=== PATIENT | female | born 1955 | race Caucasian/White ===

== ENCOUNTER 2017-03-08 15:00 | Inpatient (IN) | payer BC ==
[2017-03-21] MEDS ORDERED: METOCLOPRAMIDE 10 MG TABLET PO ONE (06:00)
[2017-03-21] MEDS ORDERED: FAMOTIDINE 20MG TABLET PO ONE (06:00)
[2017-03-21] MEDS ORDERED: CELECOXIB 100 MG CAPSULE PO ONE (06:00)
[2017-03-21] MEDS ORDERED: CEFAZOLIN 2 Gram 2 GM/50 ML BAG IVPB ONE (06:00)
[2017-03-21] MEDS ORDERED: ACETAMINOPHEN 1,000 MG/100 ML BTL IV ONE (06:00)
[2017-03-21] MEDS ORDERED: MECLIZINE 25 MG TABLET PO ONE (06:00)
[2017-03-21] MEDS ORDERED: DIPHENHYDRAMINE HCL 25 MG CAPSULE PO PRN (09:45)
[2017-03-21] MEDS ORDERED: AL HYDROX/MAG HYDROX 30ML UD PO PRN (09:45)
[2017-03-21] MEDS ORDERED: MAGNESIUM HYDROXIDE 30 ML UDC PO PRN (09:45)
[2017-03-21] MEDS ORDERED: SENNOSIDES/DOCUSATE SODIUM UD CAPSULE PO PRN (09:45)
[2017-03-21] MEDS ORDERED: HYDROMORPHONE HCL 1 MG/ML CPJ IVP PRN (09:45)
[2017-03-21] MEDS ORDERED: ONDANSETRON HCL IV 4 MG/2 ML VIAL IVP PRN (09:45)
[2017-03-21] MEDS ORDERED: TRAMADOL HCL 50 MG TABLET PO PRN ×2 (09:45)
[2017-03-21] MEDS ORDERED: ZOLPIDEM TARTRATE 5 MG TABLET PO PRN (09:45)
[2017-03-21] MEDS ORDERED: METOCLOPRAMIDE HCL 10 MG/2 ML VIAL IVP PRN (09:45)
[2017-03-21] MEDS ORDERED: OXYCODONE HCL 5 MG TABLET PO PRN (09:45)
[2017-03-21] MEDS: RINGERS SOLUTION,LACTATED 1,000 ML IV SCH (11:44)
[2017-03-21] MEDS: ACETAMINOPHEN 1,000 MG/100 ML BTL IV SCH ×2 (11:55→18:03)
[2017-03-21] MEDS: OXYCODONE HCL 5 MG TABLET PO PRN ×3 (11:55→21:44)
[2017-03-21] MEDS ORDERED: FLU VAC QS 2017-18 (INPT, 6MO+) 60MCG/0.5ML IM ONE (12:04)
--- NOTE | 2017-03-21 13:10 | Operative Note ---
DATE OF SERVICE: 03/21/2017. DATE OF SURGERY: 03/21/2017. PREOPERATIVE DIAGNOSIS: Primary osteoarthritis of the left hip. POSTOPERATIVE DIAGNOSIS: Primary osteoarthritis of the left hip. OPERATION: Left total hip arthroplasty. Surgeon: Mehul Awad DO. REFERRING PHYSICIAN: Jessica Francisco DO. PROCEDURE: This 61-year-old female taken to the operating room and placed in the supine position on the operating room table, where general anesthesia was induced. She was then placed perpendicular to the floor in the right lateral decubitus position and bolstered in this position and secured. The left hip was then prepped with Hibiclens and draped in the usual sterile fashion. All scrub personnel wore personal isolation suits. A lateral hip incision was made, dissecting down through the skin and subcutaneous tissue. The tensor was divided in line with the skin incision. A self-retaining hip retractor was placed and sharp rotators were divided to expose the hip. Capsulotomy was performed. Steinmann pin retractors were used, 1 superiorly in the gluteus medius, 1 posterior superior, and 1 posterior inferior. We then made a sue on the greater trochanter with the cautery and measured this distance to the proximal pin, and this distance was restored at the completion of the procedure. The hip was dislocated and the neck amputated. A cobra retractor was placed anteriorly. The remnants of the labrum were excised, and excellent exposure of the acetabulum was noted. The soft tissue was removed. We then started reaming with a size 46 mm reamer, reaming in 1 mm increments to a size 50 to the base of the cotyloid notch. A trial cup was placed, and this was found to be the appropriate size. Subsequently, a size 50 Trident cup was impacted into place at approximately 40 degrees of abduction and approximately 20 degrees of anteversion. Subsequently, a trial liner was placed. We then directed our attention to the proximal femur, and a box osteotome was used to cut the proximal femur, and subsequently a lathe hand was passed down the center of the shaft. Then using an alternating ream/broach technique, a size 6 broach was countersunk, and the calcar reamer was used. The size 7 broach was placed, and finally the 8, and this gave us excellent stability, and the trial reduction was accomplished off of the 8 broach. A 0 degree head was used, and the hip was taken through a range of motion with wide abduction and external rotation, flexion to 100 degrees, and internal rotation to about 70 degrees with no instability being identified. The hip was then dislocated, and all the trial components were removed. A 36 mm X3 liner was subsequently impacted into place, and a size 8 collared Secur-Fit femoral component, which was seen to contact the anterior and posterior calcar before it actually contacted the medial by a mm or less. The 36 mm Biolox head +[address], and the hip was again reduced, the wound copiously irrigated with pulse lavage lactated Ringer solution, and the short rotators were reattached utilizing #5 Ethibond through drill holes through the greater trochanter. This was restored to anatomic position, and a drain was placed through a separate stab incision. Again the wound was irrigated with pulse lavage lactated Ringer solution. Subsequently, the tensor was closed with #2 Vicryl, the subcutaneous tissue closed with 0 Vicryl, the skin was stapled, and the patient taken to the recovery room in satisfactory condition. GROSS PATHOLOGY: Patient demonstrated full thickness articular cartilage loss noted at the acetabulum and femoral head. There was a relatively small osteophyte at the inferior aspect of the acetabulum, which was removed. Final components inserted were a Pam size 8 collared femoral component, a size 50 Trident cup was used, a 36 mm X3 liner, and a 36 mm Biolox +0 head was used. [facility] NETWORKCandis
[2017-03-21] MEDS ORDERED: HYDROMORPHONE HCL 2 MG/ML VIAL IV ONE ×2 (13:51→15:44)
[2017-03-21] MEDS ORDERED: PROPOFOL 10 MG/ML VIAL IV ONE (15:44)
[2017-03-21] MEDS ORDERED: LABETALOL HCL 5MG/ML, 20ML VIAL IVPB ONE (15:44)
[2017-03-21] MEDS ORDERED: KETOROLAC 30 MG/ML VIAL IVP ONE (15:44)
[2017-03-21] MEDS ORDERED: MIDAZOLAM HCL 2MG/2ML VIAL IV ONE (15:44)
[2017-03-21] MEDS ORDERED: SEVOFLURANE 250 ML INH ONE (15:44)
[2017-03-21] MEDS ORDERED: FENTANYL PF 0.25MG/5ML AMPUL IV ONE (15:44)
[2017-03-21] MEDS ORDERED: LIDOCAINE 2% MDV (20MG/ML) 20ML VIAL IV ONE (15:44)
[2017-03-21] MEDS ORDERED: ROCURONIUM BROMIDE 50MG/5ML VIAL IV ONE (15:44)
[2017-03-21] MEDS ORDERED: ONDANSETRON HCL IV 4 MG/2 ML VIAL IVP ONE (15:44)
[2017-03-21] MEDS: CEFAZOLIN 2 Gram 2 GM/50 ML BAG IVPB SCH (16:01)
[2017-03-21] MEDS: FONDAPARINUX 2.5 MG/0.5 ML SYR SQ SCH (16:01)
--- NOTE | 2017-03-21 17:27 | Rehab Evaluation ---
Patient Information - Patient Information Diagnosis: OA L hip, s/p TONIA Ordered Treatment: PT Evaluate and Treat Status: Initial Evaluation Surgery: Yes (L TONIA) Date of Surgery: 03/21/17 History: Detail (Pt had R TONIA done in 2012, experienced progressive degeneration of L hip which was limiting her mobility. Underwent L TONIA this morning.) Past Med/Lizabeth Hx Detail: Detail Past Medical/Surgical Hx: PAST MEDICAL/SURGICAL HISTORY Past Surgical History c scope vaginal sx, right great toe sx x 2, right THR PMH - Respiratory Hx Respiratory Disorders No PMH - Cardiovascular Hx Cardiovascular Disorders No Exercise Tolerance Good PMH - Neuro Hx Neurological Disorders No PMH - GI Hx Gastrointestinal Disorders Yes Hx Rectal Bleeding No: pt denies Hx Ulcer Yes Comment: h pylori hx PMH - Hx Genitourinary Disorders Yes Hx Age of Menopause 50 Hx Bladder Problem Yes: pelvic and perineal pain Comment: STILL FREQUENCY AND URGENCY CONTINUES PMH - Endocrine Hx Endocrine Disorders No PMH - Musculoskeletal Hx Musculoskeletal Disorders Yes Hx Arthritis Yes: osteoarthritis Comment: LEFT HIP PAIN AND LIMITED ROM PMH - Psych Hx Psychiatric Problems No PMH - Hematology/Oncology Hx Hematology/Oncology Yes Disorders Hx Anemia Yes Premorbid Status: Detail (Pt was ambulating independently w/o assistive device, but was limited in walking and standing tolerance due to L hip pain. Was ascending/descending two steps in/out of home by holding onto door frame. 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 Has raised toilet and grab bar in shower, but has tub/shower combo w/sliding door. Was able to get in/out of shower w/R TONIA and thinks she'll be able to again.) Precautions: [place], Fall, Other (Total hip arthroplasty precautions for posterior approach: Avoid hip flexion beyond 90 degrees, adduction beyond midline, internal rotation beyond midline.) - Time With Patient Total Time Spent With Patient (Min): 45 Treatment Procedures: Detail (PT Evaluation) Subjective Information - Subjective Information Per Patient (Pt had received pain medication about 30 minutes prior to visit, was somewhat groggy, but cooperative for therapy. Minimal pain at rest. Mildly nauseated.) Objective Data - Pain Pain Present: Yes Pain Intensity: 1 (L hip, at rest) Pain Scale Used: Numeric (1 - 10) - Mental Status Patient Orientation: Oriented x3 - Visual Perception Appears within normal limits for therapeutic activities - ROM Not within normal limits (Limited in L hip by total hip arthroplasty precautions , otherwise WNL in L knee and ankle, R hip/knee/ankle.) - Strength/Tone Not within normal limits (Fair to fair-minus strength in major ms groups of L LE , good strength in R LE) - Coordination Appears within normal limits for therapeutic activities - Bed Mobility Needs Assist (Required assist to move and place L LE across bed in scooting to edge of bed and getting back into bed. VCs for use of trapeze and positioning.) - Transfers Needs Assist (Required CGA and VCs for sit/stand transfer from bed to front- wheeled walker, and in stand pivot transfer to bedside commode and return.) - Balance Balance Sitting: Good Balance Standing: Good (With front-wheeled walker) - Sensation Intact - Gait Detail (Took several steps in pivoting to and from commode, requiring CGA and VCs for WBAT L LE, gait sequence.) Therapy Assessment - Therapy Assessment Detail (Pt exhibits mobility impairments consistent with her post-surgical condition. She is a good candidate for inpatient physical therapy.) Patient Education - Patient Education Teaching Topic: Disease Process (Pt performed 10 reps each of ankle pumps, quadriceps isometrics, hamstring isometrics, gluteal isometrics.), Equipment Use , Exercise/Activity, Precautions Response: Return Demonstration, Reinforcement Needed, Verbalize Understanding Teaching Method: Discussion, Demonstration Teaching Recipient: Patient Barriers To Learning: None Problem List - Problem List Physical Therapy Problem List: Detail (1. Requires assist w/bed mobility and transfers. 2. Difficulty walking 3. Weakness L LE) Goals - Goals Physical Therapy Goals: 1. Pt will safely and independently get in/out of bed, transfer to bedside chair. 2. Pt will safely ambulate with front-wheeled walker over level surfaces x 100 feet, WBAT L LE, w/supervision. 3. Pt will be independent with basic HEP. Prognosis - Prognosis Good Plan - Plan Physical Therapy Plan: Pt will be seen twice tomorrow to facilitate bed mobility , transfers and gait. Anticipate discharge pending successful completion of stair training. Pt is scheduled for OPPT 03/25/17.
[2017-03-21] MEDS: GABAPENTIN 300 MG CAPSULE PO SCH (22:25)
[2017-03-22] MEDS: ACETAMINOPHEN 1,000 MG/100 ML BTL IV SCH (00:27)
[2017-03-22] MEDS: CEFAZOLIN 2 Gram 2 GM/50 ML BAG IVPB SCH ×2 (00:48→10:04)
[2017-03-22] MEDS: RINGERS SOLUTION,LACTATED 1,000 ML IV SCH (02:25)
[2017-03-22 06:59] LABS: HEMATOCRIT 30.7 % (35.0-47.0); HEMOGLOBIN 9.6 gm/dl (11.6-16.0); MEAN CELL VOLUME 87.5 fl (81-97); MEAN CORPUSCULAR HGB CONC 31.3 g/dl (32-36); MEAN PLATELET VOLUME 9.3 fl (7.4-10.4); PLATELET COUNT 298 K/uL (130-400); RED BLOOD COUNT 3.51 M/uL (3.80-5.40); RED CELL DISTRIBUTION WIDTH 13.9 % (11.5-14.5); WHITE BLOOD COUNT W/O DIFF 5.4 K/uL (4.2-12.2)
[2017-03-22 07:01] LABS: MEAN CORPUSCULAR HEMOGLOBIN 27.3 pg (27-33)
--- NOTE | 2017-03-22 07:14 | RADIOLOGY REPORT ---
EXAM: LEFT HIP, TWO VIEWS HISTORY: POSTOP. TECHNIQUE: Two views of the left hip were obtained. Comparison: None. Encounter: Initial. FINDINGS: Status post left total left hip arthroplasty. Overlying surgical drain noted. Osteopenia. No gross complicating process. IMPRESSION: LEFT HIP ARTHROPLASTY CHANGE. NO GROSS COMPLICATING PROCESS. JOB NUMBER: [id number] MTDD
[2017-03-22] MEDS: OXYCODONE HCL 5 MG TABLET PO PRN (08:07)
[2017-03-22] MEDS ORDERED: OXYCODONE/APAP 7.5MG/325MG TABLET PO PRN ×2 (09:45)
[2017-03-22] MEDS ORDERED: HYDROCODONE/APAP 7.5/325MG TABLET PO PRN ×2 (09:45)
[2017-03-22] MEDS ORDERED: ACETAMINOPHEN 325 MG TAB PO PRN (09:45)
[2017-03-22] MEDS: GABAPENTIN 300 MG CAPSULE PO SCH (10:03)
--- NOTE | 2017-03-22 10:25 | Physical Therapy Tx Note ---
Physical Therapy Tx Note - Treatment Note Tolerated: Good (Patient doing a little better now but had a rough night and very stiff in hip. Up to bathroom has been a challenge yet. Sitting up in chair now but willing to get up and walk. Did fairly well after about 40 feet and stairs as now loosened up a little.) Total Time Spent With Patient: 30 Physical Therapy Tx Note: Detail (Patient sitting up in chair, sit to stand with verbal cues and ambulated with FWW about 40 feet out into mitchell and down to stairwell. present to observe how to negotiate steps. Used walker folded and rail, ambulated down three steps with hesitant steps and weightbearing then pivoted around and ambulated back up three steps with mod assist of one and rail, folded walker. Ambulated back to room with CGA, WBAT, FWW about 40 feet. Sat in chair and able to review hip precautions correctly, then performed exercises seated with good mindfulness of hip precautions. Able to actively lift hip and do LAQ and isometrics with some assist only. Ankle pumps independent. Replaced tray table and patient rests foot on base so helpful for pressure on hip. Call light close.) Physical Therapy Problem List: Detail (1. Requires assist w/bed mobility and transfers. 2. Difficulty walking 3. Weakness L LE) Physical Therapy Goals: 1. Pt will safely and independently get in/out of bed, transfer to bedside chair. 2. Pt will safely ambulate with front-wheeled walker over level surfaces x 100 feet, WBAT L LE, w/supervision. 3. Pt will be independent with basic HEP. Prognosis: Good (Patient doing very well and has already passed skill of steps- has three to four into house. Also good with hip precautions.) Physical Therapy Plan: Pt will be seen twice tomorrow to facilitate bed mobility , transfers and gait. Anticipate discharge pending successful completion of stair training. Pt is scheduled for OPPT 03/25/17.
--- NOTE | 2017-03-22 15:05 | Rehab Evaluation ---
Patient Information - Patient Information Diagnosis: OA L hip, s/p TONIA Ordered Treatment: OT Evaluate and Treat Status: Initial Evaluation Surgery: Yes (L TONIA) Date of Surgery: 03/21/17 History: Detail (Pt had R TONIA done in 2012, experienced progressive degeneration of L hip which was limiting her mobility.) Past Medical/Surgical Hx: PAST MEDICAL/SURGICAL HISTORY Past Surgical History c scope vaginal sx, right great toe sx x 2, right THR PMH - Respiratory Hx Respiratory Disorders No PMH - Cardiovascular Hx Cardiovascular Disorders No Exercise Tolerance Good PMH - Neuro Hx Neurological Disorders No PMH - GI Hx Gastrointestinal Disorders Yes Hx Rectal Bleeding No: pt denies Hx Ulcer Yes Comment: h pylori hx PMH - Hx Genitourinary Disorders Yes Hx Age of Menopause 50 Hx Bladder Problem Yes: pelvic and perineal pain Comment: STILL FREQUENCY AND URGENCY CONTINUES PMH - Endocrine Hx Endocrine Disorders No PMH - Musculoskeletal Hx Musculoskeletal Disorders Yes Hx Arthritis Yes: osteoarthritis Comment: LEFT HIP PAIN AND LIMITED ROM PMH - Psych Hx Psychiatric Problems No PMH - Hematology/Oncology Hx Hematology/Oncology Yes Disorders Hx Anemia Yes Premorbid Status: Detail (Pt lives with spouse in a 1 story house + basement, with 2 steps at entrance. Her laundry is in the basement but her spouse will be completing laundry, home mgmt and meal prep temporarily. Pt has a tub/ shower combination with glass sliding doors, grab bar but no tub seat. She has an elevated toilet, no grab bar. She owns a 2 wheeled walker and process owner. Pt was ambulating independently w/o assistive device, but was limited in walking and standing tolerance due to L hip pain. Was ascending/descending two steps in /out of home by holding onto door frame. 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[employer].) Social History: Detail (Supportive spouse.) Precautions: [place], Fall, Other (Total hip arthroplasty precautions for posterior approach: Avoid hip flexion beyond 90 degrees, adduction beyond midline, internal rotation beyond midline.) - Time With Patient Total Time Spent With Patient (Min): 40 Treatment Procedures: Detail (OT eval low complexity) Subjective Information - Subjective Information Per Patient Objective Data - Pain Pain Present: Yes (4-5/10 left hip) - Mental Status Patient Orientation: Oriented x3 - Visual Perception Appears within normal limits for therapeutic activities (Pt wears glasses.) - ROM Within normal limits (Graham UE AROM WNL) - Strength/Tone Within normal limits (Graham UE strength WNL) - Coordination Appears within normal limits for therapeutic activities - Transfers Independent (Ind with sit to stand) - Balance Balance Sitting: Good Balance Standing: Good - Sensation Intact - ADL's/IADL's Detail (Pt able to demonstrate Ind with total body dressing using process owner, sock aid and long shoe horn while adhering to total hip precautions. She reports she was able to stand and shower after her previous total hip and feels she will be able to perform the same transfer.) Therapy Assessment - Therapy Assessment Detail (Pt is safe and Ind with total body dressing using adaptive equipment, she purchased a long shoe horn and sock aid.) Problem List - Problem List Physical Therapy Problem List: Detail (1. Requires assist w/bed mobility and transfers. 2. Difficulty walking 3. Weakness L LE) Occupational Therapy Problem List: Detail (No current OT problems identified.) Goals - Goals Physical Therapy Goals: 1. Pt will safely and independently get in/out of bed, transfer to bedside chair. 2. Pt will safely ambulate with front-wheeled walker over level surfaces x 100 feet, WBAT L LE, w/supervision. 3. Pt will be independent with basic HEP. Occupational Therapy Goals: No current IP OT goals identified. Prognosis - Prognosis Good Plan - Plan Physical Therapy Plan: Pt will be seen twice tomorrow to facilitate bed mobility , transfers and gait. Anticipate discharge pending successful completion of stair training. Pt is scheduled for OPPT 03/25/17. Occupational Therapy Plan: No further IP OT recommended. Thank you for this referral.
--- NOTE | 2017-03-22 15:40 | Physical Therapy Tx Note ---
Physical Therapy Tx Note - Treatment Note Tolerated: Good (Patient able to ambulate better this afternoon with min assist out of bed and sit to stand independently, more energy and able to ambulate faster with better technique. Exercises going well and has good hip ROM at this time. WBAT but still some discomfort with same.) Physical Therapy Tx Note: Detail (Patient seen bedside, just got back in bed from bathroom but able to sit up with min assist, sit to stand with CGA and FWW , ambulated in mitchell about 100 feet then back to room, WBAT left, worked on exercises for left hip and reviewed hip precautions again. Helped patient sit on edge of bed and OT waiting to see patient to help with dressing and using tools for same.) Physical Therapy Problem List: Detail (1. Requires assist w/bed mobility and transfers. 2. Difficulty walking 3. Weakness L LE) Physical Therapy Goals: 1. Pt will safely and independently get in/out of bed, transfer to bedside chair. 2. Pt will safely ambulate with front-wheeled walker over level surfaces x 100 feet, WBAT L LE, w/supervision. 3. Pt will be independent with basic HEP. Prognosis: Good (Patient has passed all skills for discharge from PT and may be ready for discharge home. Doing very well for exercises and gait, stairs went well.) Physical Therapy Plan: Pt will be seen twice tomorrow to facilitate bed mobility , transfers and gait. Anticipate discharge pending successful completion of stair training. Pt is scheduled for OPPT 03/25/17.
[2017-03-22] MEDS: FONDAPARINUX 2.5 MG/0.5 ML SYR SQ SCH (16:32)
--- NOTE | 2017-03-25 13:10 | Discharge Summary ---
DATE OF ADMISSION: 03/21/2017 DATE OF DISCHARGE: 03/22/2017 ADMITTING DIAGNOSIS: Osteoarthritis of the left hip. DISCHARGE DIAGNOSIS: Osteoarthritis of the left hip. OPERATIVE PROCEDURE: Elective left total hip arthroplasty. DESCRIPTION: This 61-year-old female was admitted to the hospital for elective total hip arthroplasty. She tolerated the operative procedure well. Cleared physical therapy and was ready for discharge. She demonstrated no evidence of complication or DVT. X-rays were obtained following the surgery, which showed satisfactory position and alignment of the prosthesis. She will wear her FELI hose during the day and remove them at night. She will take aspirin 325 mg b.i.d. for 2 weeks and have outpatient physical therapy. She was given a prescription for Percocet 5/325 mg to take 1-2 every 6 hours as necessary for pain, and she was given 60. Routine wound care instructions were given. She will follow up in 2 weeks. Should she have any problems prior to being seen, she was instructed to call my office. TARUN
== END 2017-03-22 16:40 | disposition home or self-care (01) | DRG 470 ==
LOC: MEDSURG 03-21 05:25
PROVIDERS: ADMIT Orthopaedic Surgery; ATTEND Orthopaedic Surgery
PROC: 0SRB03A Replacement of Left Hip Joint with Ceramic Synthetic Substitute, Uncemented, Open Approach (ICD-10-PCS; principal; 2017-03-21 07:30)
DX: M16.12 Unilateral primary osteoarthritis, left hip (principal); I10 Essential (primary) hypertension; M48.00 Spinal stenosis, site unspecified
CPT/HCPCS: 85025; 90686; 97110; 97116; 97165; C1776; J1885; J2405

== ENCOUNTER 2017-10-08 13:09 | Day surgery (SDC) | payer BC ==
[~2017-10-08 13:09] MED LIST: ACETAMINOPHEN 1,000 MG/100 ML BTL IV ONE; CEFAZOLIN 1 Gram 1 GM/50 ML BAG IVPB ONE
[2017-10-08] MEDS ORDERED: FENTANYL PF 100MCG/2ML VIAL IV ONE (13:10)
[2017-10-08] MEDS ORDERED: MIDAZOLAM HCL 2MG/2ML VIAL IV ONE (13:10)
[2017-10-08] MEDS ORDERED: LIDOCAINE 2% MDV (20MG/ML) 20ML VIAL IV ONE (13:10)
[2017-10-08] MEDS ORDERED: PROPOFOL 10 MG/ML VIAL IV ONE (13:10)
--- NOTE | 2017-10-09 12:21 | Operative Note ---
DATE OF SURGERY: 10/08/2017 PREOPERATIVE DIAGNOSIS: Interstitial cystitis. POSTOPERATIVE DIAGNOSIS: Interstitial cystitis. OPERATION: Cystoscopy with hydrodistention. Anesthesia: Sedation. Indication: A 62-year-old female with worsening interstitial cystitis symptoms that have been unresponsive to therapies except for hydrodistention in the past. As such, she elects to have another hydrodistention performed today. We discussed the procedure in detail including potential risks of pain, bleeding, infection, bladder perforation, and iatrogenic injury. She understands all the above and wishes to proceed. PROCEDURE: Preop informed consent was obtained. Antibiotics were given. Sedation was administered. The patient was brought to the cystoscopy suite and placed in lithotomy position with genitalia prepped and draped sterilely. Cystoscopy was performed. Urethra appears unremarkable. The bladder was inspected carefully. There is mild degree of trabeculation and both ureteral orifices had normal appearance and positioning. There were no bladder mucosal abnormalities seen. The bladder was then filled to capacity on 3 separate occasions under anesthesia and bladder volumes were measured at each time. The first measurement was 325 mL, the second 2 measurements were 350 mL. There was some hematuria noted at the end, which was irrigated out but there was no clot formation. The patient was then awakened and transferred to recovery in stable condition. PLAN: The patient does have rather small bladder capacity which is consistent with her diagnosis. There was mucosal bleeding after the procedure. I did not see any obvious glomerulations or ulcerations of the mucosa but I do feel that findings today support her diagnosis of interstitial cystitis. She will follow up in the next week or two to discuss any available treatment options. CC: Jessica MCNEIL
== END 2017-10-08 16:09 | disposition home or self-care (01) ==
LOC: SUR 13:09
PROVIDERS: ATTEND Urology
DX: N30.10 Interstitial cystitis (chronic) without hematuria (principal)
CPT/HCPCS: 52000; 00910; J3010; J0690